=== PATIENT | male | born 1980 | race African-American/Black ===

== ENCOUNTER 2021-08-29 22:19 | Emergency (ER) | payer MEDICAID ==
[~2021-08-29] VITALS: Ht 210.8 cm; Wt 113.4 kg
[2021-08-29] MEDS ORDERED: OLANZAPINE 5 MG TABLET PO ONE (23:00)
--- NOTE | 2021-08-29 23:00 | NUR ---
TO ER BED 15. [id number] AND [employer] FROM [facility] C/O TERRORIZING STAFF AND CUSTOMERS. BELONGINGS OBTAINED AND SECURED. 1:1 SITTER. CONNECTED TO MONITOR. AWAITING MD ALLEN
[2021-08-29 23:11] LABS: BASOPHILS % (AUTO) 0.6 % (0.0-2.0); EOSINOPHILS % (AUTO) 2.1 % (0.0-6.0); HEMATOCRIT 38 % (39-51); LYMPHOCYTES # (AUTO) 1.5 K/uL (0.8-4.8); LYMPHOCYTES % (AUTO) 31.9 % (20.0-44.0); MEAN CORPUSCULAR HGB CONC 32 g/dl (31.0-36.0); MEAN CORPUSCULAR VOLUME 81 fL (80-96); MONOCYTES # (AUTO) 0.4 K/uL (0.1-1.30); MONOCYTES % (AUTO) 9.4 % (2.0-12.0); NEUTROPHILS # (AUTO) 2.6 K/uL (1.8-8.9); PLATELET COUNT (AUTO) 195 K/uL (150-450); RED BLOOD CELL COUNT(AUTO) 4.68 MIL/uL (4.5-6.0); WHITE BLOOD COUNT (AUTO) 4.7 K/uL (4.3-11.0)
[2021-08-29] MEDS ORDERED: OLANZAPINE 5 MG TABLET ONE (23:14)
[2021-08-29 23:24] LABS: ALANINE AMINOTRANSFERASE 84 U/L (12-78); ALBUMIN 3.8 g/dL (3.4-5.0); ALKALINE PHOSPHATASE 64 U/L (46-116); ASPARTATE AMINOTRANSFERASE 65 U/L (15-37); BILIRUBIN,DIRECT 0.2 mg/dL (0.0-0.2); BILIRUBIN,TOTAL 0.6 mg/dL (0.2-1.0); CALCIUM, SERUM 8.8 mg/dL (8.5-10.1); CARBON DIOXIDE 31 mmol/L (21-32); CHLORIDE 102 mmol/L (98-107); CREATININE 1.2 mg/dL (0.6-1.3); GLUCOSE 89 mg/dL (74-106); POTASSIUM 3.3 mmol/L (3.5-5.1); SODIUM SERUM 141 mmol/L (136-145); TOTAL PROTEIN, SERUM 7.1 g/dL (6.4-8.2); UREA NITROGEN, BLOOD 8 mg/dL (7-18)
[2021-08-29 23:25] LABS: ACETAMINOPHEN 0 ug/ml (10-30); ALCOHOL, BLOOD < 3 mg/dL (0-0)
--- NOTE | 2021-08-29 23:50 | NUR ---
URINE SAMPLE COLLECTED AND SENT TO LAB
[2021-08-30] LABS: BILIRUBIN,URINE SMALL (NEGATIVE); COLOR,URINE YELLOW (YELLOW); LEUKOCYTE ESTERASE ,URINE NEGATIVE (NEGATIVE); NITRITE, URINE NEGATIVE (NEGATIVE); PH,URINE 6.5 (5.0-8.0); PROTEIN,URINE TRACE mg/dl (NEGATIVE); UGLUCOSE NEGATIVE (NEGATIVE)
--- NOTE | 2021-08-30 02:02 | NUR ---
PROVIDED PT WITH WARM BLANKET, WILL CONTINUE TO MONITOR.
--- NOTE | 2021-08-30 05:13 | NUR ---
PAGED ART CRISIS TEAM, WILL COME TO ALEJANDRO PT.
--- NOTE | 2021-08-30 05:21 | NUR ---
PROVIDED PT WITH FOOD AND DRINK, WILL CONTINUE TO MONITOR
--- NOTE | 2021-08-30 06:19 | NUR ---
PT EVALUATED BY WARD BELLEW
--- NOTE | 2021-08-30 11:40 | NUR ---
SS Note: Pt. Is a 41-year-old male who demonstrates adequate insight to the reason for hospitalization. Per EMR, pt. was brought in by [employer] on a 5150 hold. Pt. was found yelling in a nail salon. Pt. was oriented x3, alert, and was hardly cooperative. During interview, pt. was not capable of following directions and appeared unkempt. Pt.'s speech was at a normal rate and pt.'s mood was elevated. Pt. reported no hx of mental health, substance abuse, suicidal ideation, or homicidal ideation. Pt. presents auditory hallucinations, but denies visual hallucinations, paranoia, or delusions. The pt. would not tell SW what the voices are saying. SW explored pt.'s living situation. Per pt., he is homeless and stated that he has a place to go. Pt. mentioned that "it's none of your business where I am going." Pt. expressed that he wants to leave and wanted a TAP card, SW provided pt. with one. Pt. refused to answer any further questions. Plan: SW provided available resources and pt. denied, SW left resources at bedside. charter bus driver Art emulated pt. and broke the hold. SW provided pt. with TAP card and notified MD Katz. Resources Provided: Year-round shelters: [facility] [address] [place] [address] ; [facility] [address] [place] [address]; [facility] [id number] [facility] [address] Winter Shelters: [facility] Molly Strong Provider: [facility] Address: [address] [facility] [facility], [address] # of Beds: 47 Population Served: [facility] 6 | [facility] Erna Luna [place] Provider: [facility] Address: [address], [address] # of Beds: 66 Population Served: [facility] [place] Provider: [facility] Address: [id number] [place] [address], [address] # of Beds: 56 Population Served: [facility] [place] Provider: /[facility]. [facility] Address: [address] [facility], [address] # of Beds: 49 Population Served: [facility] 8 | [place] Provider: First to Serve Address: [address] [address] # of Beds: 37 Population Served: [facility]: [facility]: [address] [place] ; [facility] [facility] [address] [facility] ; [facility] [address] [place] . Food Resources: [place] [facility] at [facility]- [address] [facility]; Meet Each Need with Dignity ([facility]) [address] [facility]; [facility] [address] [facility]; [facility] [address] [facility]. Mental Health resources provided: [facility] [address] [place], [place] [phone] ; [facility] [place] [address] [facility] [address], [place], [place] [phone] ; Car[facility] Tolentino [facility] [address] [address] [place], [place] [phone] ; [facility] [address] [place], [place] [phone] Healthcare Clinics: [facility] [address] [facility], [address] [place]. [place] ; [facility] [address] [facility] [address] [place] [address]; [facility] [address] [facility]. [place] [phone] Counseling--Outpatient [facility] [address] [facility], [address] [place], [place] [id number] (Specializes in in-depth psychotherapy for emotional distress: anxiety, depression, interpersonal conflicts, life transitions, childhood abuse) [facility] [address] [place], [place] [address] (Assist with solving problem marital difficulties, separation & divorce, aging parents, & grief, chronic & terminal illness) [facility] [address] [place] [address] (Deal with loss & grief, anxiety, marital difficulties) Homebound/Mental Health Services [address] [facility] [address] [place], [place] [id number] (Provide in-home mental services to people who are incapable of leaving their homes) [facility] Senior Service/Resource Center [address] [place] [address] [facility] [address] [place], [place] [address] PSYCHIATRIC OUTPATIENT SERVICES [facility] Partial Hospitalization and Intensive Outpatient Program (Managed Care and [place] Only)[address] Critical access hospital [phone] [facility] Partial Hospitalization and Outpatient Pjntfwj60974 [facility] [address] [place], [place] [phone] [facility] [place] Ndm[address] [facility] [address] [place], [place] [phone] [facility] Partial Hospitalization and Outpatient Rvskwua93164 [place], [phone] Substance Abuse resources provided included: [facility] Substance Abuse Self-Helpline ([facility]) ; [facility] [address] [facility]. [place] [address] ; [facility] [address] [facility] [address] ; [facility] [address] [facility] [address] ; [facility] [address] [facility] [phone] ; [facility] [address] [facility] [address] ; [facility] [address] [facility] [phone] ; [facility]stance Abuse Helpline([facility] ; [facility] Family Counseling ; [facility]; [facility]; [facility] [place]; [facility] [place]; [facility] [place]; [facility] Bus[place]; [facility] [place]; [facility] [place], [facility]. Alexandra Strong; Alcoholics Anonymous -SFV; Af-Ommu-Hnepgbi ; Marijuana Anonymous -SFV; Narcotics Anonymous www.[email or web address];
--- NOTE | 2021-08-30 13:05 | NUR ---
Patient discharged to home in stable condition. Written and verbal after care instructions given. Patient verbalizes understanding of instruction.
[2021-08-30 13:08] VITALS: BP 128/74
== END 2021-08-30 13:08 | disposition home or self-care (01) ==
LOC: ER 22:27 → EDBD 22:27 → ER 08-30 13:08
DX: F29 Unspecified psychosis not due to a substance or known physiological condition (principal); F25.9 Schizoaffective disorder, unspecified; Z20.822 Contact with and (suspected) exposure to COVID-19; F43.10 Post-traumatic stress disorder, unspecified
CPT/HCPCS: 36415; 80048; 80076; 80143; 80307; 80320; 81003; 85025; 87426; 99284; C9803; G0480